=== PATIENT | male | born 1985 | race Caucasian/White ===

== ENCOUNTER 2023-01-14 18:51 | Emergency (ER) | payer SELFPAY ==
[~2023-01-14] VITALS: Ht 180.3 cm; Wt 117.9 kg
[2023-01-14 19:27] VITALS: BP 131/84
[2023-01-14] MEDS ORDERED: IBUP-2213 PO (20:04)
--- NOTE | 2023-01-14 20:21 | NUR ---
PATIENT BIB [place] [employer]. PATIENT EXAMINED BY DILMA ANSARI. PATIENT MEDICALLY CLEARED AND RELEASED IN CUSTODY IN STABLE CONDITION. ORIGINAL PRE-BOOK FORM GIVEN TO OFFICER AD #[id number]. PAPER RX OF MOTRIN GIVEN
== END 2023-01-14 20:21 ==
LOC: MED 18:51
DX: R07.9 Chest pain, unspecified (principal); M25.561 Pain in right knee
CPT/HCPCS: 99283